=== PATIENT | male | born 1970 | race Hispanic/Latino ===

== ENCOUNTER 2023-06-25 22:37 | Emergency (ER) | payer SELFPAY ==
[2023-06-25 23:44] LABS: Absolute Basophils 0.1 K/uL (0-0.5); Absolute Lymphocytes (CBC) 1.5 K/uL (0.7-4.9); Absolute Monocytes 0.8 K/uL (0.1-1.3); Basophils % 0.5 % (0-1.3); Hematocrit 45.5 % (39.6-49.0); Hemoglobin 15.6 g/dL (13.6-17.9); Lymphocytes % 12.8 % (15.3-44.8); MCH 30.7 pg (27.0-35.0); MCHC 34.4 g/dL (32.0-36.0); MCV 89.4 fL (80-100); MPV 9.1 fL (7.6-11.3); Monocytes % 7.1 % (3.3-12.3); Neutrophils % 79.6 % (41.7-73.7); Nucleated Red Blood Cells % 0.1 % (0-0); Platelets 259 thou/uL (152-406); RBC Red Blood Cell Count 5.09 M/uL (4.33-5.43); Red Cell Distribution Width 13.3 % (12.1-15.2)
[2023-06-25 23:52] LABS: SARS-CoV-2 Antigen CONTROL BLUE LINE VIS/BG OK; SARS-CoV-2 Antigen Rapid Res Negative (Negative)
[2023-06-26] LABS: Albumin 3.6 g/dL (3.4-5.0); Albumin/Globulin Ratio 0.8 (1.1-1.8); Anion Gap 10.4 mEq/L (5.0-15.0); Bilirubin Total 0.8 mg/dL (0.2-1.0); Globulin 4.5 g/dL (2.3-3.5); Potassium 3.4 mEq/L (3.5-5.1); Protein, Total 8.1 g/dL (6.4-8.2)
[2023-06-26 00:14] LABS: Specific Gravity 1.015 (1.005-1.030); Sqamous Epithelial None Seen /HPF (None Seen); Urine Bacteria None Seen /HPF (<20); Urine Bilirubin NEGATIVE (Negative); Urine Blood Trace (Negative); Urine Clarity Clear (Clear); Urine Color Light-Yellow (Yellow); Urine Culture Reflex Order NOT NEEDED; Urine Glucose NEGATIVE (Negative); Urine Ketones 2+ (Negative); Urine Microscopic Reflex YN ORDER UMIC; Urine Mucus Slight /HPF (None Seen); Urine Nitrite NEGATIVE (Negative); Urine Protein NEGATIVE (Negative); Urine RBC <5 /HPF (None Seen); Urine Urobilinogen Normal (Normal); Urine WBC <5 /HPF (<5); Urine pH 5.5 (5.0-7.0)
[2023-06-26] MEDS ORDERED: KETOROLAC 30 MG/ML INJ ONE (02:24)
[2023-06-26] MEDS ORDERED: PROMETHAZINE 25 MG TABLET ONE (02:24)
[2023-06-26] MEDS ORDERED: METOCLOPRAMIDE 10 MG/2mL INJ ONE (02:24)
[2023-06-26] MEDS ORDERED: CODEINE 30MG/APAP 300MG TAB ONE (02:24)
[2023-06-26] MEDS ORDERED: NA CHLORIDE 0.9% 1,000 ML ONE (02:25)
[2023-06-26] MEDS ORDERED: DIPHENOX/ATROP SULF 1 TAB PO ONE (02:25)
--- NOTE | 2023-06-26 04:39 | ER ---
Nurse's Notes [facility] Name: Eliazar Lim Age: 52 yrs Sex: Male : 1970 Arrival Date: 06/25/2023 Time: 22:37 Bed 12 Private MD: Diagnosis: Fever, unspecified;Acute respiratory illness, acute bronchitis, nausea vomiting diarrhea, acute gastroenteritis. Presentation: 06/25 00:00 Chief complaint: Patient states: cough, nasal drainage, headache, body aches pain of pf1 10, nausea, subjective fever and diarrhea, onset Saturday. Coronavirus screen: Vaccine status: Patient reports receiving the 2nd dose of the covid vaccine. At this time, unable to obtain information related to travel outside the [place] Client presents with at least one sign or symptom that may indicate coronavirus-19. Ebola Screen: Patient negative for fever greater than or equal to 101.5 degrees Fahrenheit, and additional compatible Ebola Virus Disease symptoms. Initial Sepsis Screen: Does the patient meet any 2 criteria? HR > 90 bpm. Does the patient have a suspected source of infection? No. Patient's initial sepsis screen is negative. Risk Assessment: Do you want to hurt yourself or someone else? Patient reports no desire to harm self or others. Onset of symptoms was June 21, 2023. 00:00 Method Of Arrival: Ambulatory pf1 00:00 Acuity: EDWARD 3 pf1 Triage Assessment: 00:06 General: Appears in no apparent distress. comfortable, well groomed, well developed, pf1 Behavior is calm, cooperative, appropriate for age, quiet. EENT: Reports nasal congestion nasal discharge. Respiratory: Reports cough that is. Respiratory: Airway is patent Respiratory effort is even, unlabored, Respiratory pattern is regular, symmetrical. GI: Reports diarrhea. 00:06 Pain: Complains of pain in generalized body aches with headache Pain currently is 10 pf1 out of 10 on a pain scale. 00:06 Cardiovascular: Capillary refill < 3 seconds Patient's skin is warm and dry. : No pf1 deficits noted. No signs and/or symptoms were reported regarding the genitourinary system. Derm: No deficits noted. No signs and/or symptoms reported regarding the dermatologic system. Musculoskeletal: Reports pain in generalized body aches with headache. 00:07 Neuro: Level of Consciousness is awake, alert, obeys commands, Oriented to person, pf1 place, time, situation, Reports headache. Historical: - Allergies: 00:05 No Known Allergies; pf1 - PMHx: 00:05 None; pf1 - PSHx: 00:05 None; pf1 - Immunization history:: Adult Immunizations up to date, Client reports receiving the 2nd dose of the Covid vaccine, Last tetanus immunization: > 10 years ago Flu vaccine is not up to date. - Infectious Disease History:: Denies. - Social history:: Smoking status: Patient denies any tobacco usage or history of. Patient uses alcohol, occasionally. Patient/guardian denies using street drugs. - Family history:: not pertinent. Screenin:07 [facility] ED Fall Risk Assessment (Adult) History of falling in the last 3 months, vc1 including since admission No falls in past 3 months (0 pts) Confusion or Disorientation No (0 pts) Intoxicated or Sedated No (0 pts) Impaired Gait No (0 pts) Mobility Assist Device Used No (0 pt) Altered Elimination No (0 pt) Score/Fall Risk Level 0 - 2 = Low Risk Oriented to surroundings, Maintained a safe environment, Educated pt \\T\\ family on fall prevention, incl call for assistance when getting out of bed. Abuse screen: Denies threats or abuse. Nutritional screening: No deficits noted. Tuberculosis screening: No symptoms or risk factors identified. Assessment: 00:10 General: See triage assessment. pf1 01:00 Pain: Complains of pain in "pain all over" Pain currently is 10 out of 10 on a pain pf1 scale. Quality of pain is described as aching. GI: Reports diarrhea. 02:00 Reassessment: Patient and/or family updated on plan of care and expected duration. Pain pf1 level reassessed. Patient is alert, oriented x 3, equal unlabored respirations, skin warm/dry/pink. 03:00 Reassessment: No changes from previously documented assessment. Patient and/or family pf1 updated on plan of care and expected duration. Pain level reassessed. Patient is alert, oriented x 3, equal unlabored respirations, skin warm/dry/pink. 04:30 Reassessment: Patient states feeling better. Patient states symptoms have improved. pf1 Vital Signs: 00:00 BP 134 / 91; Pulse 105; Resp 18; Temp 99.4; Pulse Ox 97% ; Weight 86.18 kg; Height 5 pf1 ft. 7 in. ; Pain 10/10; 02:00 BP 124 / 75; Pulse 91; Resp 16; Pulse Ox 100% on R/A; pf1 03:00 BP 116 / 64; Pulse 89; Resp 16; Temp 98.3; Pulse Ox 100% on R/A; Pain 2/10; pf1 04:30 BP 128 / 88; Pulse 85; Resp 18; Temp 98.8; Pulse Ox 97% ; pf1 00:00 Body Mass Index 29.76 (86.18 kg, 170.18 cm) pf1 00:00 Pain Scale: Adult pf1 03:00 Pain Scale: Adult pf1 ED Course: 06/24 22:40 Patient arrived in ED. jj6 22:47 Jose Landry MD is Attending Physician. sp4 23:19 Influenza Screen (a \\T\\ B) Sent. bc6 23:19 SARS RAPID Sent. bc6 23:19 CBC with Diff Sent. bc6 23:19 CMP Sent. bc6 23:19 Lipase Sent. bc6 23:19 Urinalysis w/ reflexes Sent. bc6 23:19 Initial lab(s) drawn, by ma, sent to lab. Urine collected: clean catch specimen, COVID bc6 swab sent to lab. Flu and/or RSV swab sent to lab. Inserted saline lock: 20 gauge in left antecubital area, using aseptic technique. Blood collected. 06/25 00:05 Triage completed. pf1 00:07 Arm band placed on right wrist. pf1 00:10 Patient has correct armband on for positive identification. Bed in low position. Call pf1 light in reach. Pulse ox on. NIBP on. 01:19 Chest Pa And Lat (2 Views) XRAY In Process Unspecified. EDMS 04:45 No provider procedures requiring assistance completed. IV discontinued, intact, pf1 bleeding controlled, No redness/swelling at site. Pressure dressing applied. 04:50 Provided Education on: complete abx. pf1 Administered Medications: 02:30 Drug: Ketorolac IVP 30 mg IVP once Route: IVP; Site: left antecubital; pf1 04:30 Follow up: Response: No adverse reaction; Marked relief of symptoms pf1 02:30 Drug: NS 0.9% IV 1000 ml IV at 1 bolus Per protocol; 1000 mL bolus Route: IV; Rate: 1 pf1 bolus; Site: left antecubital; 03:30 Follow up: IV Status: Completed infusion; IV Intake: 1000ml pf1 02:30 Drug: metoCLOPramide IVP 10 mg IVP once; over 1 to 2 minutes Route: IVP; Site: left pf1 antecubital; 04:30 Follow up: Response: No adverse reaction; Marked relief of symptoms pf1 02:30 Drug: Diphenoxylate-Atropine PO 2 tabs PO once Route: PO; pf1 04:30 Follow up: Response: No adverse reaction; Marked relief of symptoms pf1 02:30 Drug: Promethazine PO 25 mg PO once Route: PO; pf1 04:30 Follow up: Response: No adverse reaction; Marked relief of symptoms pf1 02:30 Drug: Acetaminophen-Codeine PO (300 mg-30 mg) 2 tabs PO once; RASS on ADMIN: Combtv4, pf1 Very Agttd3, Agttd2, Rstlss1, AlertClm0, Drwsy-1, Lt Sdtn-2, Mod Sdtn-3, Dp Sdtn-4, UnArsble-5 Route: PO; 04:30 Follow up: Response: No adverse reaction; Marked relief of symptoms pf1 Medication: 04:50 VIS not applicable for this client. pf1 Intake: 03:30 IV: 1000ml; Total: 1000ml. pf1 Outcome: 04:38 Discharge ordered by . sp4 04:50 Discharged to home ambulatory, pf1 04:50 Condition: improved pf1 04:50 Discharge instructions given to patient, Instructed on discharge instructions, follow up and referral plans. Demonstrated understanding of instructions, follow-up care, medications, Prescriptions given X 5 04:50 Patient left the ED. pf1 Signatures: Dispatcher [employer] EDMS Jessica Jones6 Reina Montenegro RN RN 1 Layla Arroyo RN RN pf1 Mere Lau Sergey, MD MD sp4 Corrections: (The following items were deleted from the chart) 05:40 05:38 Reassessment: Patient and/or family updated on plan of care and expected pf1 duration. Pain level reassessed. Patient is alert, oriented x 3, equal unlabored respirations, skin warm/dry/pink. pf1 06:34 04:30 BP 128 / 88; Pulse 99bpm; Resp 18bpm; Pulse Ox 97%; pf1 pf1 07:22 05:15 Patient left the ED. pf1 pf1 07:25 00:07 Neuro: Reports headache pf1 pf1 07:27 04:30 BP 128 / 88; Pulse 99bpm; Resp 18bpm; Pulse Ox 97%; Temp 99F; pf1 pf1
--- NOTE | 2023-06-26 04:39 | EDPHYS ---
Physician Documentation [facility] Name: Eliazar Lim Age: 52 yrs Sex: Male : 1970 Arrival Date: 06/25/2023 Time: 22:37 Bed 12 Private MD: ED Physician Jose Landry HPI: 06/24 22:47 This 53 yrs old Male presents to ER via Unassigned with complaints of Fever, sp4 Nausea/Vomiting, General Weakness, Shortness Of Breath, Headache, Worst Ever, Dizziness. 06/25 03:37 52-year-old male presents with 4 days of persistent fever, headache body aches nausea. .sp4 Historical: - Allergies: 00:05 No Known Allergies; pf1 - PMHx: 00:05 None; pf1 - PSHx: 00:05 None; pf1 - Immunization history:: Adult Immunizations up to date, Client reports receiving the 2nd dose of the Covid vaccine, Last tetanus immunization: > 10 years ago Flu vaccine is not up to date. - Infectious Disease History:: Denies. - Social history:: Smoking status: Patient denies any tobacco usage or history of. Patient uses alcohol, occasionally. Patient/guardian denies using street drugs. - Family history:: not pertinent. ROS: 03:38 Constitutional: Positive for fever, positive nausea vomiting, positive stomachaches, sp4 positive body aches, positive headache, positive generalized weakness 03:38 All other systems are negative, Exam: 03:38 Constitutional: This is a well developed, well nourished patient who is awake, alert, sp4 and in no acute distress. Head/Face: Normocephalic, atraumatic. Eyes: Pupils equal round and reactive to light, extra-ocular motions intact. Lids and lashes normal. Conjunctiva and sclera are not injected. Cornea within normal limits. Periorbital areas with no swelling, redness, or edema. ENT: Nares patent. No nasal discharge, no septal abnormalities noted. Tympanic membranes are normal and external auditory canals are clear. Oropharynx with no redness, swelling, or masses, exudates, or evidence of obstruction, uvula midline. Mucous membranes moist. Neck: Trachea midline, no thyromegaly or masses palpated, and no cervical lymphadenopathy. Supple, full range of motion without nuchal rigidity, or vertebral point tenderness. Chest/axilla: Normal chest wall appearance and motion. Nontender with no deformity. No lesions are appreciated. Cardiovascular: Regular rate and rhythm with a normal S1 and S2. No gallops, murmurs, or rubs. Normal PMI, no JVD. No pulse deficits. Respiratory: Lungs have equal breath sounds bilaterally, clear to auscultation and percussion. No rales, rhonchi or wheezes noted. No increased work of breathing, no retractions or nasal flaring. Abdomen/GI: Soft, with normal bowel sounds. No distension or tympany. No guarding or rebound. No evidence of tenderness throughout. Back: No spinal tenderness. No costovertebral tenderness. Skin: Warm, dry with normal turgor. Normal color with no rashes, no lesions, and no evidence of cellulitis. MS/ Extremity: Pulses equal, no cyanosis. Neurovascular intact. Full, normal range of motion. Neuro: Awake and alert, GCS 15, oriented to person, place, time, and situation. Cranial nerves II-XII grossly intact. Motor strength 5/5 in all extremities. Sensory grossly intact. Psych: Awake, alert, with orientation to person, place and time. Behavior, mood, and affect are within normal limits Vital Signs: 00:00 BP 134 / 91; Pulse 105; Resp 18; Temp 99.4; Pulse Ox 97% ; Weight 86.18 kg; Height 5 pf1 ft. 7 in. ; Pain 10/10; 02:00 BP 124 / 75; Pulse 91; Resp 16; Pulse Ox 100% on R/A; pf1 03:00 BP 116 / 64; Pulse 89; Resp 16; Temp 98.3; Pulse Ox 100% on R/A; Pain 2/10; pf1 04:30 BP 128 / 88; Pulse 85; Resp 18; Temp 98.8; Pulse Ox 97% ; pf1 00:00 Body Mass Index 29.76 (86.18 kg, 170.18 cm) pf1 00:00 Pain Scale: Adult pf1 03:00 Pain Scale: Adult pf1 MDM: 06/24 22:48 Patient medically screened. sp4 06/25 02:06 ED course: EXAM: XR Chest, 2 Views CLINICAL HISTORY: cough , fever TECHNIQUE: Frontal sp4 and lateral views of the chest. COMPARISON: No relevant prior studies available. FINDINGS: Lungs: Unremarkable. No consolidation. Pleural space: Unremarkable. No pneumothorax. Heart: Unremarkable. No cardiomegaly. Mediastinum: Unremarkable. Normal mediastinal contour. Bones/joints: Unremarkable. No acute fracture. IMPRESSION: No acute disease. . 04:36 Differential diagnosis: viral Infection, bacterial infection, URI, bronchitis, sp4 pneumonia gastroenteritis. Data reviewed: vital signs, nurses notes, old medical records, lab test result(s), radiologic studies, plain films. Consideration of Admission/Observation Escalation of care including admission/observation considered. ED course: Patient is feeling much better after medications. Will provide prescription for Phenergan, dextromethorphan, loperamide, high-dose ibuprofen, also Z-Atif in case of underlying bacterial bronchitis. Overall will advise 3 days at home away from work. . 06/24 22:48 Order name: CBC with Diff; Complete Time: 01:02 4 06/24 22:48 Order name: CMP; Complete Time: : [facility] 06/24 22:48 Order name: Lipase; Complete Time: 01: sp4 06/24 22:48 Order name: Urinalysis w/ reflexes; Complete Time: 01:02 4 06/24 22:48 Order name: SARS RAPID; Complete Time: 01:02 4 06/24 22:48 Order name: Influenza Screen (a \T\ B); Complete Time: 01: 4 06/25 01:03 Order name: Chest Pa And Lat (2 Views) XRAY 4 06/24 22:48 Order name: IV Saline Lock; Complete Time: 23:19 4 06/24 22:48 Order name: Labs collected and sent; Complete Time: 23:19 4 Administered Medications: 02:30 Drug: Ketorolac IVP 30 mg IVP once Route: IVP; Site: left antecubital; pf1 04:30 Follow up: Response: No adverse reaction; Marked relief of symptoms pf1 02:30 Drug: NS 0.9% IV 1000 ml IV at 1 bolus Per protocol; 1000 mL bolus Route: IV; Rate: 1 pf1 bolus; Site: left antecubital; 03:30 Follow up: IV Status: Completed infusion; IV Intake: 1000ml pf1 02:30 Drug: metoCLOPramide IVP 10 mg IVP once; over 1 to 2 minutes Route: IVP; Site: left pf1 antecubital; 04:30 Follow up: Response: No adverse reaction; Marked relief of symptoms pf1 02:30 Drug: Diphenoxylate-Atropine PO 2 tabs PO once Route: PO; pf1 04:30 Follow up: Response: No adverse reaction; Marked relief of symptoms pf1 02:30 Drug: Promethazine PO 25 mg PO once Route: PO; pf1 04:30 Follow up: Response: No adverse reaction; Marked relief of symptoms pf1 02:30 Drug: Acetaminophen-Codeine PO (300 mg-30 mg) 2 tabs PO once; RASS on ADMIN: Combtv4, pf1 Very Agttd3, Agttd2, Rstlss1, AlertClm0, Drwsy-1, Lt Sdtn-2, Mod Sdtn-3, Dp Sdtn-4, UnArsble-5 Route: PO; 04:30 Follow up: Response: No adverse reaction; Marked relief of symptoms pf1 Disposition Summary: 06/26/23 04:38 Discharge Ordered Notes: Location: Home sp4 Problem: new sp4 Symptoms: have improved sp4 Condition: Stable sp4 Diagnosis - Fever, unspecified sp4 - Acute respiratory illness, acute bronchitis, nausea vomiting diarrhea, acute sp4 gastroenteritis. Followup: sp4 - With: Private Physician - When: 7 - 10 days - Reason: Recheck today's complaints Discharge Instructions: - Discharge Summary Sheet sp4 - Fever, Adult, [id number] sp4 Forms: - Patient Portal Instructions sp4 Prescriptions: - dextromethorphan-guaifenesin 20-400 mg Oral tablet - take 1 tablet ORAL route every 6 hours PRN cough; 40 tablet; Refills: 0, sp4 Product Selection Permitted - Ibuprofen 800 mg Oral tablet - take 1 tablet ORAL route every 6 hours As needed PRN fever or body aches; 30 sp4 tablet; Refills: 0, Product Selection Permitted - Zithromax Z-Atif 250 mg Oral Tablet - take 1 tablet ORAL route as directed for 5 days Day 1 - take two (2) tablets sp4 one time. Day 2, 3, 4 , 5 take one (1) tablet once daily.; 6 tablet; Refills: 0, Product Selection Permitted - Lomotil 2.5-0.025 mg Oral tablet - take 1 tablet ORAL route every 6 hours As needed PRN diarrhea; 30 tablet; sp4 Refills: 0, Product Selection Permitted - promethazine 25 mg Oral tablet - take 1 tablet ORAL route every 6 hours As needed PRN nausea; 30 tablet; sp4 Refills: 0, Product Selection Permitted Signatures: Dispatcher [employer] Layla eHrnández, RN RN pf1 Jose Landry MD MD sp4 Corrections: (The following items were deleted from the chart) 06/24 22:48 22:48 SARS-COV-2 Antigen Rapid+I.LAB.BRZ ordered. EDMS EDMS 22:48 22:48 Influenza Screen (A \T\ B)+BA.LAB.BRZ ordered. EDMS EDMS
[2023-06-26 05:24] VITALS: BP 134/91; TEMP 99.4; O2SAT 97
--- NOTE | 2023-06-26 11:39 | RAD REPORT ---
EXAM DESCRIPTION: XR Chest, 2 Views CLINICAL HISTORY: Cough , fever TECHNIQUE: Frontal and lateral views of the chest. COMPARISON: No relevant prior studies available. FINDINGS: Lungs: Unremarkable. No consolidation. Pleural space: Unremarkable. No pneumothorax. Heart: Unremarkable. No cardiomegaly. Mediastinum: Unremarkable. Normal mediastinal contour. Bones/joints: Unremarkable. No acute fracture. IMPRESSION: No acute disease. Electronically signed by: Madonna Valentine MD 06/26/2023 01:40 AM CDT Due to temporary technical issues with the PACS/Fluency reporting system, reports are being signed by the in house radiologist without review as a courtesy to ensure prompt reporting. The interpreting r adiologist is fully responsible for the content of the report.
== END 2023-06-26 05:15 | disposition home or self-care (01) ==
LOC: ER 22:37 → EDBD 22:37 → ER 06-26 05:15
DX: J20.9 Acute bronchitis, unspecified (principal); J06.9 Acute upper respiratory infection, unspecified; K52.9 Noninfective gastroenteritis and colitis, unspecified; Z11.52 Encounter for screening for COVID-19
CPT/HCPCS: 36415; 71046; 80053; 81001; 83690; 85025; 87804; 87811; J2765; J7030; Q0169